=== PATIENT | female | born 1935 | race Caucasian/White ===

== ENCOUNTER 2017-03-19 06:34 | Day surgery (SDC) | payer MEDICARE ==
[~2017-03-19 06:34] MED LIST: Buffered Lidocaine 1% SYRIN* 3 ML/SYR SYRINGE INTRADERM ONE; Famotidine TAB* 20 MG ONE; Famotidine TAB* 20 MG PO ONE; PROCHLORPERAZINE INJ 5 MG/ML 2 ML VIAL IV PRN; ceFAZolin 2 GM PREMIX(*) 2 GM/50 ML BAG IVPB ONE; fentaNYL* 50 MCG/ML 2 ML VIAL (100 MCG VIAL) IV PRN; oxyCODONE/Acetamin 5/325 MG* TAB PO PRN
[2017-03-19] MEDS ORDERED: Bupivacaine 0.25% W/EPI* 50 ML VIAL ONE (07:11)
[2017-03-19] MEDS ORDERED: Lidocain 1% EPI 1:100,000 * 30 ML MDV ONE (07:11)
[2017-03-19] MEDS ORDERED: Midazolam* 1 MG/ML 5 ML VIAL (5 MG) ONE (07:33)
[2017-03-19] MEDS ORDERED: fentaNYL* 50 MCG/ML 2 ML VIAL (100 MCG VIAL) ONE (07:33)
[2017-03-19] MEDS ORDERED: KETAMINE HCL* 50 MG/ML 10 ML VIAL ONE (07:33)
[2017-03-19] MEDS ORDERED: Mineral Oil Sterile, TOPICAL* 25 ML BTL ONE (08:54)
[2017-03-19] MEDS ORDERED: Lidocaine 2% PF* 10 ML AMP ONE (09:09)
[2017-03-19] MEDS ORDERED: Propofol* 10 MG/ML 20 ML BTL IV PUSH ONE (09:09)
[2017-03-19] MEDS ORDERED: PROCHLORPERAZINE INJ 5 MG/ML 2 ML VIAL ONE (10:00)
[2017-03-19] MEDS ORDERED: Bacitracin OINTMENT* 1 TUBE ONE (10:18)
[2017-03-19] MEDS ORDERED: Ondansetron INJ* 2 MG/ML VIAL ONE (10:26)
[2017-03-19] MEDS ORDERED: Dexamethasone TAB* 4 MG ONE (10:26)
[2017-03-19] MEDS ORDERED: Dexamethasone TAB* 0.5 MG PO ONE (10:26)
[2017-03-19] MEDS ORDERED: Ondansetron INJ* 2 MG/ML VIAL IV ONE (10:27)
[2017-03-19] MEDS ORDERED: Scopolamine 1.5 mg* PATCH ONE (10:40)
[2017-03-19] MEDS ORDERED: DiMENhydriNATE IV* 50 MG/ML VIAL IM ONE (10:41)
[2017-03-19] MEDS ORDERED: DiMENhydriNATE IV* 50 MG/ML VIAL ONE (10:42)
[2017-03-19] MEDS ORDERED: Scopolomine PATCH Remove* 1 NOTE MISC PATCH OFF SCH (11:00)
[2017-03-19] MEDS ORDERED: Scopolamine 1.5 mg* PATCH TRANSDERM SCH (11:00)
[2017-03-19 12:45] VITALS: BP 127/65
== END 2017-03-19 12:45 | disposition home or self-care (01) ==
LOC: OR 06:34
PROVIDERS: ATTEND Plastic Surgery
DX: C44.311 Basal cell carcinoma of skin of nose (principal); Z87.891 Personal history of nicotine dependence; E03.9 Hypothyroidism, unspecified
CPT/HCPCS: 88305; 88331; 88332; A9270-GY; J0690; J0780; J1240; J2001; J2250; J2405; J2704; J3010

== ENCOUNTER 2021-04-10 16:28 | Observation (INO) ==
[~2021-04-10 16:28] MED LIST changes: -Buffered Lidocaine 1% SYRIN* 3 ML/SYR SYRINGE INTRADERM ONE; +Clindamycin 900 MG/D5W BAG 900 MG/50 ML BAG IVPB SCH; +Dexamethasone IV 4 MG/ML VIAL 1 ml VIAL IV SLOW PU SCH; +EPHEDrine (Pressors) 50 MG/ML VIAL IV PUSH SCH; -Famotidine TAB* 20 MG ONE; -Famotidine TAB* 20 MG PO ONE; +Lidocaine 1% VIAL 10 MG/ML VIAL INJ SCH; +Lidocaine 2% PF 5 ML VIAL IV SCH; +Ondansetron 4 mg VIAL 2 MG/ML 2 ml VIAL IV SCH; -PROCHLORPERAZINE INJ 5 MG/ML 2 ML VIAL IV PRN; +Propofol 10 MG/ML 20 ML BTL IV SCH; +Rocuronium 50 mg VIAL 10 mg/ml 5 ml VIAL (50 mg) IV SCH; -ceFAZolin 2 GM PREMIX(*) 2 GM/50 ML BAG IVPB ONE; +fentaNYL 100 mcg/2 ml 50 MCG/ML VIAL IV SCH; -fentaNYL* 50 MCG/ML 2 ML VIAL (100 MCG VIAL) IV PRN; -oxyCODONE/Acetamin 5/325 MG* TAB PO PRN
[2021-04-10] MEDS ORDERED: Ondansetron 4 mg VIAL 2 MG/ML 2 ml VIAL ONE (20:35)
[2021-04-10] MEDS ORDERED: Propofol 10 MG/ML 20 ML BTL ONE (20:37)
[2021-04-10] MEDS ORDERED: fentaNYL 100 mcg/2 ml 50 MCG/ML VIAL ONE ×2 (20:43→21:27)
[2021-04-10] MEDS ORDERED: Sugammadex 500 MG/5 ML 5 ml VIAL IV PUSH ONE (20:58)
[2021-04-10] MEDS ORDERED: Acetaminophen IV 1 GM/100ML 1,000 MG/100 ML VIAL IVPB PRN (21:21)
[2021-04-10] MEDS ORDERED: Ondansetron 4 mg VIAL 2 MG/ML 2 ml VIAL IV PRN ×2 (21:21→21:22)
[2021-04-10] MEDS ORDERED: Naloxone 0.4 mg VIAL 0.4 mg/ml 1 ml VIAL IV PRN (21:21)
[2021-04-10] MEDS ORDERED: HYDROmorphone 1 MG/1 ML SYRINGE IV SLOW PU PRN (21:22)
[2021-04-10] MEDS ORDERED: Acetaminophen IV 1 GM/100ML 100 ML ONE (21:23)
[2021-04-10] MEDS ORDERED: HYDROmorphone 1 MG/1 ML SYRINGE ONE (21:23)
[2021-04-10] MEDS: HYDROmorphone 1 MG/1 ML SYRINGE IV PRN ×2 (21:24→21:31)
[2021-04-10] MEDS: fentaNYL 100 mcg/2 ml 50 MCG/ML VIAL IV PRN ×2 (21:28→21:44)
[2021-04-10] MEDS ORDERED: Lactated Ringers 1000 ml BAG 1,000 ML IV SCH (22:00)
[2021-04-10 23:08] LABS: ABS Lymphocytes 0.5 10^3/ul (1.0-4.8); ABS Monocytes 0.3 10^3/ul (0-0.8); ABS Neutrophils 8.8 10^3/ul (1.5-7.7); Eosinophil % 0.2 %; Hematocrit 41 % (35-47); Hemoglobin 13.7 g/dL (12.0-16.0); Lymphocyte % 5.3 %; Mean Corpuscular HGB Conc 34 g/dL (31-36); Mean Corpuscular Hemoglobin 29 pg (27-31); Mean Corpuscular Volume 86 fL (80-97); Mean Platelet Volume 8.3 fL (7.4-10.4); Platelet Count 254 10^3/uL (150-450); Red Blood Count 4.75 10^6 /uL (3.70-4.87); Red Cell Distribution Width 14 % (10-15); White Blood Count 9.6 10^3/uL (3.5-10.8)
[2021-04-10 23:28] LABS: ALT 33 U/L (7-52); Albumin 3.4 g/dL (3.2-5.2); Albumin/Globulin Ratio 1.4 (1-3); Alkaline Phosphatase 76 U/L (35-149); Blood Urea Nitrogen 27 mg/dL (6-24); C Reactive Protein 4.84 mg/L (<8.01); CO2 Carbon Dioxide 23 mmol/L (22-32); Calcium 8.4 mg/dL (8.6-10.3); Chloride 100 mmol/L (101-111); EGFR African American 101.5 (>60); EGFR Non-African American 83.9 (>60); Globulin 2.4 g/dL (2-4); Glucose 120 mg/dL (70-100); Lipase 17 U/L (11.0-82.0); Sodium 132 mmol/L (135-145); Total Protein 5.8 g/dL (6.4-8.9)
[2021-04-10 23:36] LABS: Anion Gap 9 mmol/L (2-11)
[2021-04-10] MEDS: oxyCODONE/Acetamin 5/325 mg TAB PO PRN (23:42)
[2021-04-10] MEDS: Pantoprazole VIAL 40 MG VIAL IV SCH (23:42)
[2021-04-11 02:33] LABS: Potassium Redraw 3.8 mmol/L (3.5-5.0)
[2021-04-11] MEDS: oxyCODONE/Acetamin 5/325 mg TAB PO PRN (05:56)
[2021-04-11] MEDS ORDERED: HYDROmorphone 0.5 MG/0.5 ML SYRINGE IV SLOW PU PRN (12:05)
[2021-04-11 12:34] LABS: Albumin 3.2 g/dL (3.2-5.2); CO2 Carbon Dioxide 22 mmol/L (22-32); Calcium 8.1 mg/dL (8.6-10.3); Chloride 102 mmol/L (101-111); Sodium 133 mmol/L (135-145)
[2021-04-11 12:40] LABS: ALT 34 U/L (7-52); Albumin/Globulin Ratio 1.5 (1-3); Alkaline Phosphatase 73 U/L (35-149); Blood Urea Nitrogen 26 mg/dL (6-24); EGFR African American 108.9 (>60); Globulin 2.1 g/dL (2-4); Glucose 107 mg/dL (70-100); Total Protein 5.3 g/dL (6.4-8.9)
[2021-04-11 12:44] LABS: Anion Gap 9 mmol/L (2-11)
[2021-04-11] MEDS: Heparin 5000 UNITS/ML 1 mL VIAL SUBCUT SCH ×2 (13:12→22:00)
[2021-04-11 13:50] LABS: ABS Eosinophils 0.1 10^3/ul (0-0.6); ABS Monocytes 0.7 10^3/ul (0-0.8); ABS Neutrophils 7.9 10^3/ul (1.5-7.7); Eosinophil % 0.7 %; Hematocrit 39 % (35-47); Hemoglobin 13.3 g/dL (12.0-16.0); Lymphocyte % 10.4 %; Mean Corpuscular HGB Conc 34 g/dL (31-36); Mean Corpuscular Hemoglobin 29 pg (27-31); Mean Corpuscular Volume 86 fL (80-97); Mean Platelet Volume 8.4 fL (7.4-10.4); Platelet Count 245 10^3/uL (150-450); Red Blood Count 4.52 10^6 /uL (3.70-4.87); Red Cell Distribution Width 15 % (10-15); White Blood Count 9.7 10^3/uL (3.5-10.8)
[2021-04-11 13:56] LABS: Potassium Redraw 3.6 mmol/L (3.5-5.0)
[2021-04-11 15:44] LABS: Urine Appearance Cloudy; Urine Bilirubin Negative (Negative); Urine Blood Negative (Negative); Urine Color Yellow; Urine Glucose Negative (Negative); Urine Ketones 2+ (Negative); Urine Nitrite Negative (Negative); Urine Protein Negative (Negative); Urine Specific Gravity 1.024 (1.002-1.030); Urine Urobilinogen Negative (Negative)
[2021-04-11 15:50] LABS: Urine Bacteria 1+ (Absent); Urine Red Blood Cell Trace(0-2/hpf) (Absent); Urine Squamous Epithelial Cell Present (Absent); Urine White Blood Cell 3+(>20/hpf) (Absent)
[2021-04-11] MEDS: Pantoprazole VIAL 40 MG VIAL IV SCH (22:00)
[2021-04-12] MEDS: oxyCODONE/Acetamin 5/325 mg TAB PO PRN ×2 (05:33→13:56)
[2021-04-12] MEDS: Heparin 5000 UNITS/ML 1 mL VIAL SUBCUT SCH ×2 (05:34→13:57)
[2021-04-12 11:47] VITALS: BP 126/61
== END 2021-04-12 15:35 | disposition home or self-care (01) ==
LOC: AA 16:28 → ED 16:28 → AA 19:22 → SSU 22:17
PROVIDERS: ADMIT Surgery; ATTEND Surgery